=== PATIENT | female | born 1955 ===

== ENCOUNTER → 2020-08-26 08:00 | Outpatient (CLI) | payer OTHER ==
[~2020-08-26] VITALS: Ht 154.9 cm; Wt 87.5 kg
[~2020-08-26 08:00] MED LIST: ATORVASTATIN CA20 MG; GABAPENT PO; GABAPENTIN100 M2; GLIPIZIDE ER5 MG; GLIPIZIDE XL2.5 MG PO; JANUMET 50-1,01 EACH PO; JARDIANCE25 MG PO; LIPIT PO; LOSARTAN-HCTZ1 EAC2 PO; TOPROL XL50 M1 PO
== END | disposition home or self-care (01) ==
LOC: LAB 08:00 → EDSTATUS 09-02 12:45 → OB/GYN 09-02 12:45
PROVIDERS: ATTEND Obstetrics & Gynecology Gynecologic Oncology
DX: Z20.828 Contact with and (suspected) exposure to other viral communicable diseases (principal); C54.1 Malignant neoplasm of endometrium; D64.89 Other specified anemias; N39.0 Urinary tract infection, site not specified; R97.1 Elevated cancer antigen 125 [CA 125]; Z03.818 Encounter for observation for suspected exposure to other biological agents ruled out; I10 Essential (primary) hypertension

== ENCOUNTER 2020-10-22 07:45 | Inpatient (IN) | payer OTHER ==
[~2020-10-22] VITALS: Ht 154.9 cm; Wt 86.6 kg
[~2020-10-22 07:45] MED LIST changes: -ATORVASTATIN CA20 MG; -GABAPENTIN100 M2; -GLIPIZIDE ER5 MG
[2020-10-28] MEDS ORDERED: ATORVASTATIN CA20 MG (11:10)
[2020-10-28] MEDS ORDERED: GLIPIZIDE ER5 MG (11:10)
[2020-10-28] MEDS ORDERED: GABAPENTIN100 M2 (11:10)
== END 2020-10-30 12:33 | disposition home or self-care (01) | DRG 741 ==
LOC: OB/GYN 10-28 05:45 → O/R 10-28 05:45 → SURH 10-28 07:45 → OB/GYN 10-28 20:41
PROVIDERS: ADMIT Obstetrics & Gynecology Gynecologic Oncology; ATTEND Obstetrics & Gynecology Gynecologic Oncology
PROC: 0UT24ZZ Resection of Bilateral Ovaries, Percutaneous Endoscopic Approach (ICD-10-PCS; 2020-10-28)
PROC: 0UT74ZZ Resection of Bilateral Fallopian Tubes, Percutaneous Endoscopic Approach (ICD-10-PCS; 2020-10-28)
PROC: 07BC4ZZ Excision of Pelvis Lymphatic, Percutaneous Endoscopic Approach (ICD-10-PCS; 2020-10-28)
PROC: 0UT94ZZ Resection of Uterus, Percutaneous Endoscopic Approach (ICD-10-PCS; principal; 2020-10-28 10:45)
DX: C54.1 Malignant neoplasm of endometrium (principal); N80.0 Endometriosis of uterus; D25.1 Intramural leiomyoma of uterus; D25.2 Subserosal leiomyoma of uterus; N83.311 Acquired atrophy of right ovary; I10 Essential (primary) hypertension; E11.9 Type 2 diabetes mellitus without complications